=== PATIENT | male | born 2000 | race Caucasian/White ===

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

== ENCOUNTER 2021-05-13 23:27 | Emergency (ER) | payer MEDICAID, OTHER ==
[~2021-05-13] VITALS: Ht 165.1 cm; Wt 49.4 kg
[2021-05-14] MEDS ORDERED: IBUPROFEN 400 MG TABLET PO ONE
[2021-05-14] MEDS ORDERED: IBUPROFEN 400 MG TABLET ONE (00:05)
--- NOTE | 2021-05-14 00:05 | NUR ---
Patient discharged to home in stable condition. Written and verbal after care instructions given. Patient verbalizes understanding of instruction.
[2021-05-14 00:06] VITALS: BP 135/70
== END 2021-05-14 00:06 | disposition home or self-care (01) ==
LOC: ER 23:29
DX: S00.01XA Abrasion of scalp, initial encounter (principal); J45.909 Unspecified asthma, uncomplicated; W01.0XXA Fall on same level from slipping, tripping and stumbling without subsequent striking against object, initial encounter; Y93.01 Activity, walking, marching and hiking; Y92.89 Other specified places as the place of occurrence of the external cause; Y99.8 Other external cause status

== ENCOUNTER 2022-01-04 02:42 | Emergency (ER) | payer MEDICAID ==
[~2022-01-04] VITALS: Ht 165.1 cm; Wt 61.2 kg
[2022-01-04 03:04] VITALS: BP 129/69
--- NOTE | 2022-01-04 03:04 | NUR ---
BIBSLEF C/O HEAD PAIN RAD TO BOTH EARS AND JAW FOR THE PAST FEW DAYS . PT A/OX4. TOLERATING R/A WELL WITH NO SOB; RESP EVEN AND NON LABORED. PT AMBULATORY WITH STEADY GAIT. SAFETY MEASURES IN PLACE.
--- NOTE | 2022-01-04 03:26 | NUR ---
Patient discharged to home in stable condition. Written and verbal after care instructions given. Patient verbalizes understanding of instruction. PT ambulatory with a steady gait
== END 2022-01-04 03:45 | disposition home or self-care (01) ==
LOC: ER 02:48
DX: M26.621 Arthralgia of right temporomandibular joint (principal); J45.909 Unspecified asthma, uncomplicated

== ENCOUNTER 2022-02-11 22:57 | Emergency (ER) | payer MEDICAID ==
[~2022-02-11] VITALS: Ht 165.1 cm; Wt 61.2 kg
--- NOTE | 2022-02-11 23:05 | NUR ---
BIBSELF C/O CP X 2 DAYS NO RADIATING. PATIENT IS AAOX4. PAIN SCALE OF 8/10. PATIENT IS ANXIOUS WHEN BEING INTERVIEWED. VITALS CHECKED.
--- NOTE | 2022-02-11 23:09 | NUR ---
JESSICA LEMUS AT BEDSIDE CAPTURING THE PERFECT EKG
--- NOTE | 2022-02-11 23:09 | NUR ---
JESSICA BOSTON ASSISTING JESSICA LEMUS COLLECT THE CHANGES IN ELECTRICAL ACTIVITY OF THE HEART AT BEDSIDE.
--- NOTE | 2022-02-11 23:11 | NUR ---
EKG BEING OVERWATCHED BY KIM YAO
--- NOTE | 2022-02-11 23:19 | NUR ---
CXR DONE AT BEDSIDE
[2022-02-11] MEDS ORDERED: NABU-139 PO (23:44)
--- NOTE | 2022-02-11 23:46 | NUR ---
Patient discharged to home in stable condition. Written and verbal after care instructions given. Patient verbalizes understanding of instruction. PT ambulatory with a steady gait
[2022-02-11 23:47] VITALS: BP 129/78
== END 2022-02-11 23:48 | disposition home or self-care (01) ==
LOC: ER 23:02
DX: R07.89 Other chest pain (principal); J45.909 Unspecified asthma, uncomplicated; F17.210 Nicotine dependence, cigarettes, uncomplicated
CPT/HCPCS: 71045-TC

== ENCOUNTER 2024-04-08 01:01 | Emergency (ER) | payer MEDICAID ==
[~2024-04-08] VITALS: Ht 165.1 cm; Wt 59.0 kg
[~2024-04-08 01:01] MED LIST changes: +CYCL10TA9 PO; +IBUP-1957 PO; -KETOROLAC TROMETHAMINE INJ 30 MG/ML VIAL ONE; -KETOROLAC TROMETHAMINE INJ 60 MG/2 ML VIAL IM ONE; +NABU-139 PO
[2024-04-08 01:12] VITALS: BP 139/81; TEMP 98.1; O2SAT 98
[2024-04-08] MEDS ORDERED: TDAP [DIPH/PERTUSSIS/TET] 0.5 ML VIAL IM ONE (02:06)
[2024-04-08] MEDS: TDAP [DIPH/PERTUSSIS/TET] 0.5 ML VIAL IM ONE (02:11)
== END 2024-04-08 02:12 | disposition home or self-care (01) ==
LOC: ER 01:04
DX: S61.210A Laceration without foreign body of right index finger without damage to nail, initial encounter (principal); S61.212A Laceration without foreign body of right middle finger without damage to nail, initial encounter; J45.909 Unspecified asthma, uncomplicated; F17.200 Nicotine dependence, unspecified, uncomplicated; Z87.448 Personal history of other diseases of urinary system; W45.8XXA Other foreign body or object entering through skin, initial encounter; Y93.G3 Activity, cooking and baking; Y92.090 Kitchen in other non-institutional residence as the place of occurrence of the external cause; Y99.8 Other external cause status
CPT/HCPCS: 90715

== ENCOUNTER 2024-04-08 03:26 | Emergency (ER) | payer MEDICAID ==
[2024-04-08] MEDS ORDERED: GELATIN SPONGE,ABSORBABLE 1 SPONGE SPONGE TP ONE (03:43)
== END 2024-04-08 05:11 | disposition home or self-care (01) ==
LOC: ER 03:30
DX: S60.410D Abrasion of right index finger, subsequent encounter (principal); S60.412D Abrasion of right middle finger, subsequent encounter; F17.200 Nicotine dependence, unspecified, uncomplicated; J45.909 Unspecified asthma, uncomplicated; Z48.00 Encounter for change or removal of nonsurgical wound dressing; X58.XXXD Exposure to other specified factors, subsequent encounter

== ENCOUNTER 2024-04-11 00:30 | Emergency (ER) | payer MEDICAID | END 2024-04-11 03:18 | disposition left against medical advice (07) | LOC: ER 00:33 | DX: Z48.00 Encounter for change or removal of nonsurgical wound dressing (principal); Z53.21 Procedure and treatment not carried out due to patient leaving prior to being seen by health care provider ==

== ENCOUNTER 2025-03-14 23:30 | Emergency (ER) | payer MEDICAID ==
[~2025-03-14] VITALS: Ht 170.2 cm; Wt 51.7 kg
[2025-03-15] MEDS ORDERED: KETOROLAC TROMETHAMINE 15 MG/ML VIAL ONE (00:12)
[2025-03-15] MEDS: KETOROLAC TROMETHAMINE 15 MG/ML VIAL IV ONE (00:14)
[2025-03-15 00:24] LABS: PLATELET COUNT (AUTO) 298 K/uL (150-450); RED BLOOD CELL COUNT(AUTO) 5.65 MIL/uL (4.5-6.0); RED CELL DISTRIBUTION WIDTH 13.4 % (11.5-15.0); WHITE BLOOD COUNT (AUTO) 6.8 K/uL (4.3-11.0)
[2025-03-15 00:35] LABS: CALCIUM, SERUM 9.1 mg/dL (8.5-10.1); CREATININE 0.8 mg/dL (0.6-1.3); SODIUM SERUM 141 mmol/L (136-145); UREA NITROGEN, BLOOD 15 mg/dL (7-18)
[2025-03-15] MEDS ORDERED: IBUP-1490 PO (01:00)
[2025-03-15] MEDS ORDERED: METH-649 PO (01:00)
[2025-03-15 01:14] VITALS: BP 133/85; TEMP 98; O2SAT 98
== END 2025-03-15 01:15 | disposition home or self-care (01) ==
LOC: ER 23:37
DX: M54.6 Pain in thoracic spine (principal); R07.89 Other chest pain; F17.200 Nicotine dependence, unspecified, uncomplicated; J45.909 Unspecified asthma, uncomplicated; Z79.1 Long term (current) use of non-steroidal anti-inflammatories (NSAID); Z87.448 Personal history of other diseases of urinary system
CPT/HCPCS: 99285; 96374; 71045; 93005; 85025; 80048; 36415; 84484; J1885